=== PATIENT | female | born 1955 | race Caucasian/White ===

== ENCOUNTER 2021-04-28 06:22 | Day surgery (SDC) | payer MEDICARE ==
[~2021-04-28] VITALS: Ht 175.3 cm; Wt 65.3 kg
[~2021-04-28 06:22] MED LIST: AMBIEN5 MG PO; AMITRIPTYLINE H25 MG PO; ASPIRIN EC81 MG PO; CALTRATE 600 +1 EAC1 PO; COQ-1030 MG PO; DAILY VITAMIN1 EAC2 PO; EFFEXOR XR150 MG PO; EFFEXOR XR37.5 MG PO; EVISTA60 MG PO; FROVA2.5 MG PO; MAGNESIUM GLUC500 GM MC; NEXIUM20 MG PO; POTASSIUM GLUCO99 MG PO; TOPROL XL100 MG PO; VITAMIN C500 M1 PO
[2021-04-28] MEDS ORDERED: GABAPENTIN800 MG PO (06:42)
[2021-04-28] MEDS ORDERED: FAMOTIDINE20 MG PO (06:44)
[2021-04-28] MEDS ORDERED: METOPROLOL SUC200 MG PO (06:46)
--- NOTE | 2021-04-28 08:24 | NUR ---
04/28/21 0824 Vale Russell 0752 PT ARRIVED IN PACU SLEEPY. 0810 AT BEDSIDE TALKING WITH PT. 0815 SIPPING ON WATER. DC INSTRUCTIONS GIVEN. 0820 LEFT VIA W/C.
--- NOTE | 2021-04-29 15:49 | PATH ---
[facility] [address] [place], [place] [address] Signed SPECIMEN(S): A ANTRUM/PYLORUS BIOPSY SPECIMEN SOURCE: A. ANTRUM/PYLORUS BIOPSY CLINICAL HISTORY: EGD with poss. dilation. Preop: Esophageal dysphagia, acid reflux. Postop: Gastritis. MICROSCOPIC DESCRIPTION: Histologic sections of all submitted blocks are examined by light microscopy. These findings, together with the gross examination, support the pathologic diagnosis. FINAL PATHOLOGIC DIAGNOSIS: Stomach, antrum/pylorus, biopsy: - Antral mucosa with chronic, inactive gastritis. - Negative for Helicobacter organisms on HE stain. - Negative for dysplasia or malignancy. NAL:cml:C2NR GROSS DESCRIPTION: The specimen, labeled "DM, antrum/pylorus," is received in formalin and consists of one duran soft tissue fragment that measures 0.3 cm in greatest dimension. The specimen is entirely submitted in cassette (A1). AT (under the direct supervision of a pathologist) The Gross Description was prepared using a voice recognition system. The report was reviewed for accuracy; however, sound-alike word errors, addition and/or deletions may occur. If there is any question about this report, please contact Client Services. PERFORMING LABORATORY: The technical component was performed by [employer], [address] [place] [address] (Molded Frames Assembler: Laura Ruvalcaba MD; CLIA# [id number]). [facility], [address] [address] (CLIA# [id number]). Diagnostician: Brittny Ibrahim MD Pathologist Electronically Signed 04/29/2021 PATIENT NAME: SHANIQUA HOBSON PATHOLOGY DATE OF : 55 REPORT #: [id number] PHYSICIAN: [facility] PCP: NIC ROMERO PAC REPORT IS CONFIDENTIAL AND NOT TO BE RELEASED WITHOUT AUTHORIZATION [address] [place], [place] [address] Signed Copies: ~ PATIENT NAME: SHANIQUA HOBSON PATHOLOGY DATE OF : 55 REPORT #: [id number] PHYSICIAN: [facility] PCP: NIC ROMERO PAC REPORT IS CONFIDENTIAL AND NOT TO BE RELEASED WITHOUT AUTHORIZATION
--- NOTE | 2021-05-05 13:05 | OR ---
[facility] [address] [place], [place] [address] Signed DATE OF OPERATION: 04/28/2021 SURGEON: Nando Davis MD PREOPERATIVE DIAGNOSES: 1. Gastroesophageal reflux disease. 2. Distal esophageal dysphagia. POSTOPERATIVE DIAGNOSIS: [id number] diffuse punctate hemorrhagic gastritis. PROCEDURE: Esophagogastroduodenoscopy with CLOtest and biopsies of the antrum. ESTIMATED BLOOD LOSS: None. INDICATIONS: Shaniqua is a 66-year-old female, who was asked to see me for upper endoscopy. We have come through the COVID pandemic this last year along with all of our various political elections. She told me it has been very stressful for her and her family. She has been having what she feels acid reflux, but more importantly distal esophageal dysphagia. Although, she then pointed to the sternal notch. She said it is mainly to solids, but otherwise she can get it down with a drink of water. She started herself on Pepcid 20 mg p.o. b.i.d. and it is better. She said the swallowing is much better, although she does not feel it is quite back to baseline. We had seen her in the office and reviewed the above findings with her. We sent her for a barium swallow and she has a Schatzki's ring in the distal esophagus; however, today she felt she was better and did not feel strongly about having that dilated. In the office, I gave her a pamphlet on upper endoscopy. She understands the nature of that test, having gone through it before as well as a colonoscopy. She understands there is risk including, but not limited to gas bloating, crampy abdominal pain, bleeding, perforation requiring surgery, and missed diagnosis. She recalls the need for IV conscious sedation. She had expressed understanding and wished to proceed. DESCRIPTION OF PROCEDURE: Shaniqua was taken into our endoscopy suite and placed in a supine semi-recumbent position. She was given 3 mg of Versed and 100 mcg of fentanyl to cover the case. The posterior oropharynx was anesthetized with lidocaine spray. A bite block was utilized for the case. The adult gastroscope was introduced and advanced under direct visualization of Electronically Signed By: NANDO DAVIS MD 04/29/21 0721 Electronically Signed By: NANDO DAVIS MD 05/07/21 0811 PATIENT NAME: SHANIQUA HOBSON OPERATIVE REPORT DATE OF : 55 REPORT #: [id number] PHYSICIAN: NANDO DAVIS MD PCP: NIC ROMERO PAC REPORT IS CONFIDENTIAL AND NOT TO BE RELEASED WITHOUT AUTHORIZATION [facility] [address] [place], [place] [address] Signed camera without difficulty. Her esophagus appears completely unremarkable. Specifically, we did not visualize the Schatzki ring. The scope was then passed through the stomach out into the duodenum itself. The duodenum and pyloric channel were unremarkable. Once back in the stomach, we could see mild punctate hemorrhagic gastritis throughout. We took biopsies from the antrum for pathologic review. We took an additional biopsy from the antrum for CLOtest, no ulcerations. Upon retroflexion of scope, we cannot appreciate a hiatal hernia. The scope was withdrawn up through the area of the GE junction, which was compliant without stricture. There was no gastric or esophageal varices. The Z-line remains intact. There was no Haddad mucosa. There was no distal esophagitis. The middle and upper esophagus were unremarkable. After this, the gas was suctioned out and the gastroscope removed. Shaniqua tolerated the procedure quite well. RECOMMENDATIONS: I will see Shaniqua back in my office in 7 to 14 days to review her results. She could consider a proton pump inhibitor for a couple of months until feeling better, and then switch over to her H2 cheri. Nanod Davis MD ALB/MODL /[id number] cc: Nando Davis MD Copies: NANDO DAVIS MD ~ Electronically Signed By: NANDO DAVIS MD 04/29/21 0721 Electronically Signed By: NANDO DAVIS MD 05/07/21 0811 PATIENT NAME: SHANIQUA HOBSON OPERATIVE REPORT DATE OF : 55 REPORT #: [id number] PHYSICIAN: NANDO DAVIS MD PCP: NIC ROMERO PAC REPORT IS CONFIDENTIAL AND NOT TO BE RELEASED WITHOUT AUTHORIZATION
== END 2021-04-28 08:20 | disposition home or self-care (01) ==
LOC: OPS 06:22 → DS 06:22 → OPS 06:45 → DS 06:45 → OPS 08:15
PROVIDERS: ATTEND Colon & Rectal Surgery
PROC: 0DB78ZX Excision of Stomach, Pylorus, Via Natural or Artificial Opening Endoscopic, Diagnostic (ICD-10-PCS; principal; 2021-04-28 06:45)
DX: K29.51 Unspecified chronic gastritis with bleeding (principal); I10 Essential (primary) hypertension; K21.9 Gastro-esophageal reflux disease without esophagitis; I45.19 Other right bundle-branch block; E78.5 Hyperlipidemia, unspecified; M81.0 Age-related osteoporosis without current pathological fracture; Z20.822 Contact with and (suspected) exposure to COVID-19
CPT/HCPCS: 88305; 99153; G0500; J2250; J3010; J7121

== ENCOUNTER 2022-05-31 08:32 | Emergency (ER) | payer MEDICARE ==
[~2022-05-31] VITALS: Ht 175.3 cm; Wt 64.9 kg
[~2022-05-31 08:32] MED LIST changes: +FAMOTIDINE20 MG PO; +GABAPENTIN800 MG PO; +METOPROLOL SUC200 MG PO
== END 2022-05-31 10:50 | disposition home or self-care (01) ==
LOC: ED 08:32
DX: S83.92XA Sprain of unspecified site of left knee, initial encounter (principal); I10 Essential (primary) hypertension; Z87.891 Personal history of nicotine dependence; Z79.899 Other long term (current) drug therapy; X50.1XXA Overexertion from prolonged static or awkward postures, initial encounter
CPT/HCPCS: 73560

== ENCOUNTER 2025-02-19 10:55 | Day surgery (SDC) | payer MEDICARE ==
[~2025-02-19] VITALS: Ht 175.3 cm; Wt 64.5 kg
[~2025-02-19 10:55] MED LIST changes: +24 HOUR ALLERG9.9 ML NAS; +ALPHA LIPOIC A200 MG PO; +CALCIUM 1,0001 EAC1 PO; +CANDICIDAL CAP1 EACH PO; +DICLOFENAC SODI75 MG PO; +ESTRACE42.5 GM VAGINAL; +ESTRADIOL1 EAC8 TD; +FISH OIL 1,001000 MG PO; +FLUTICASONE PRO16 GM NAS; +IBLOOD GLUCOSE TEST STRIP 1 EA TEST VI PRN; +LACTATED RINGER'S 1,000 ML IV SCH; +LIDOCAINE HCL 1% 5 ML SDV INJ ONE; +LIDOCAINE HCL 4% 50 ML BTL TOP SCH; +MIDAZOLAM HCL 5 MG/5 ML VIAL IV PRN; +OMEPRAZOLE20 M2 PO; +[UNRECOGNIZED DRUG - OTHER] PR; +fentaNYL citrate 100 MCG/2 ML VIAL IV PRN
[2025-02-19] MEDS ORDERED: LIPOIC ACID25 GM PO (11:19)
[2025-02-19] MEDS ORDERED: TURMERIC500 M3 PO (11:19)
[2025-02-19] MEDS ORDERED: [UNRECOGNIZED DRUG - OTHER] TOP (11:21)
[2025-02-19 11:22] VITALS: BP 181/75
[2025-02-19] MEDS ORDERED: MIDAZOLAM HCL 5 MG/5 ML VIAL ONE (12:26)
[2025-02-19] MEDS ORDERED: fentaNYL citrate 100 MCG/2 ML VIAL ONE (12:26)
--- NOTE | 2025-02-19 13:30 | NUR ---
02/19/25 1330 Sheets,Radha 1321 PT ARRIVED TO PACU ON 2L VIA NC, PT WAKES EASILY AND DENIES CONCERNS. PT EASILY FALLS BACK TO SLEEP AND DECREASED RESP RATE NOTED. DEEP BREATHING ENCOURAGED OFF AND ON, PT WAKES EASILY TO VERBAL STIMULI.
[2025-02-19 14:25] VITALS: BP 135/71
--- NOTE | 2025-02-20 09:54 | OR ---
[facility] [address] [place], [place] [address] Signed DATE OF OPERATION: 02/19/2025 SURGEON: Alvaro Garrett MD PREOPERATIVE DIAGNOSES: 1. History of mid esophageal dysphagia and gastroesophageal reflux symptoms; recently free of symptoms. 2. Abnormal upper GI in September 2024 (food delay in mid esophagus). POSTOPERATIVE DIAGNOSIS: Normal-appearing esophagus, flap valve, stomach, and duodenum. PROCEDURE: Esophagogastroduodenoscopy with biopsy. ANESTHESIA: Intravenous sedation fentanyl 100 mcg, Versed 3 mg. INDICATION: This 69-year-old white woman is a patient of MAL Chaney. She has a history of dysphagia and reflux. She was on famotidine b.i.d., which was inadequate in controlling her symptoms. She was empirically treated with PPI medication, Prilosec 20 mg daily, which has been very helpful to her. An upper GI was performed in September 2024, which showed food delay in passage to the mid esophagus which cleared with dry swallows. Since initiating omeprazole 20 mg a day and continuing famotidine 20 mg b.i.d. at the request of her primary provider Nic Romero, she has essentially no symptoms of dysphagia or heartburn. She is admitted at this time to undergo upper endoscopy to better characterize her situation and particularly to assess for eosinophilic esophagitis given the upper GI findings. The risk of bleeding, infection, perforation, and so forth were reviewed with her. She understands and wished to proceed. FINDINGS: The esophagus, stomach and duodenum were essentially normal. The flap valve was surprisingly good. There was no evidence of H pylori based on CLOtest initially. There was no obstruction to the gastric outlet. Duodenum appeared normal. There was no hiatal hernia. DESCRIPTION OF PROCEDURE: The patient was brought to the endoscopy suite and placed in lateral decubitus position Electronically Signed By: ALVARO GARRETT MD 02/20/25 0954 PATIENT NAME: SHANIQUA HOBSON OPERATIVE REPORT DATE OF : 55 REPORT #: [id number] PHYSICIAN: ALVARO GARRETT MD PCP: NIC ROMERO PAC REPORT IS CONFIDENTIAL AND NOT TO BE RELEASED WITHOUT AUTHORIZATION [facility] [address] [place], [place] [address] Signed after undergoing topical lidocaine hypopharyngeal anesthesia. She was given intravenous sedation to the point of slurred speech and nystagmus with full cardiopulmonary monitoring. A bite block was placed. An Olympus video upper endoscope was passed in the hypopharynx. The vocal cords were visualized as normal. Scope was easily passed in the esophagus throughout its length, it was normal. Scope was passed to the stomach which was insufflated with air. Rugal folds were normal. Antrum was normal as was the pylorus. The scope was passed through it into the duodenum, which was normal. Biopsies were then taken of the duodenum showing no sign of abnormality otherwise. Further withdrawal showed normal antrum and biopsies were obtained there for both JORDAN and pathologic testing. Retroflexed view was undertaken showing a surprisingly good flap valve, certainly no hiatal hernia per se. Scope was straightened, withdrawn. Biopsies taken of the distal esophagus and also in the midesophagus to assess for eosinophilic esophagitis. There is certainly no evidence of inflammatory change, stricture, neoplasm, felinization, varices or other abnormality. Further withdrawal of scope showed no other findings of concern. Scope was removed. CONCLUDING DIAGNOSIS: Clinical gastroesophageal reflux with some mid esophageal dysphagia. At this point, I think she can discontinue the H2 cheri b.i.d. and stay with the Prilosec (omeprazole) 20 mg daily. We will see her back in the office in 3 to 6 months to review her pathology reports and her clinical course under the new regimen and go from there. MD TAMIE Wesley/MIGUELINA /[id number] cc: Nic Romero PA-C Copies: ~ Electronically Signed By: ALVARO GARRETT MD 02/20/25 0954 PATIENT NAME: SHANIQUA HOBSON OPERATIVE REPORT DATE OF : 55 REPORT #: [id number] PHYSICIAN: ALVARO GARRETT MD PCP: NIC ROMERO PAC REPORT IS CONFIDENTIAL AND NOT TO BE RELEASED WITHOUT AUTHORIZATION
--- NOTE | 2025-02-21 10:29 | PATH ---
[facility] [address] [place], [place] [address] Signed SPECIMEN(S): A DUODENAL BIOPSY SPECIMEN(S): B ANTRUM BIOPSY SPECIMEN(S): C LOWER ESOPHAGEAL BIOPSY SPECIMEN(S): D MIDDLE ESOPHAGEAL BIOPSY SPECIMEN SOURCE: A. DUODENAL BIOPSY B. ANTRUM BIOPSY C. LOWER ESOPHAGEAL BIOPSY D. MIDDLE ESOPHAGEAL BIOPSY CLINICAL HISTORY: GERD, history of H. pylori. Post-normal esophagus FINAL PATHOLOGIC DIAGNOSIS: A. Duodenum, biopsy: - Duodenal mucosa with no significant pathologic changes B. Stomach, antrum, biopsy: - Gastric antral mucosa with no significant pathologic changes - Negative for Helicobacter pylori with HE stains C. Esophagus, lower, biopsy: - Esophageal squamous mucosa with no significant pathologic changes D. Esophagus, middle, biopsy: - Esophageal squamous mucosa with no significant pathologic changes BRP MICROSCOPIC EXAMINATION: Histologic sections of all submitted blocks are examined by light microscopy. These findings, together with the gross examination, support the pathologic diagnosis. GROSS DESCRIPTION: A. The specimen, labeled and designated "Naomi Marks, duodenal biopsy," is received in formalin and consists of three duran soft tissue fragments, ranging from 0.1-0.3 cm. Entirely submitted in (A1). B. The specimen, labeled and designated "Naomi Marks, antrum biopsy," is received in formalin and consists of two duran soft tissue fragments, ranging from 0.2-0.4 cm. Entirely submitted in (B1). C. The specimen, labeled and designated "Kendrick, D, lower esophageal biopsy," is received in formalin and consists of two duran soft tissue fragments, ranging from 0.2-0.6 cm. Entirely submitted in PATIENT NAME: SHANIQUA MARKS PATHOLOGY DATE OF : 55 REPORT #: [id number] PHYSICIAN: MAYELA AWAN PCP: NIC ROMERO PAC REPORT IS CONFIDENTIAL AND NOT TO BE RELEASED WITHOUT AUTHORIZATION [facility] [address] [place], [place] [address] Signed (C1). D. The specimen, labeled and designated "Naomi Marks, middle esophageal biopsy," is received in formalin and consists of one duran soft tissue fragment, 0.3 cm. Entirely submitted in (D1). AB (under the direct supervision of a pathologist) The Gross Description was prepared using a voice recognition system. The report was reviewed for accuracy; however, sound-alike word errors, addition and/or deletions may occur. If there is any question about this report, please contact Client Services. ADDITIONAL NOTES: Immunohistochemical and/or in situ hybridization studies if performed in this case included appropriate positive controls that reacted as expected. This test was developed and its performance characteristics determined by [facility]. It has not been cleared or approved by the U.S. Food and Drug Administration. The FDA has determined that such clearance or approval is not necessary. This test is used for clinical purposes. It should not be regarded as investigational or for research. [facility] is certified under the Clinical Laboratory Improvement Amendments of 1988 (CLIA) as qualified to perform high complexity clinical laboratory testing. Technical component was performed by [facility], [address] [place] [id number] (CLIA# [id number]). Professional interpretation was performed by [facility], [address] [place] [address] (CLIA#: [id number]). Diagnostician: Gabe Mcgovern MD Pathologist Electronically Signed 02/21/2025 Copies: ~ PATIENT NAME: SHANIQUA MARKS PATHOLOGY DATE OF : 55 REPORT #: [id number] PHYSICIAN: MAYELA PATHOLOGY PCP: NIC ROMERO PAC REPORT IS CONFIDENTIAL AND NOT TO BE RELEASED WITHOUT AUTHORIZATION
== END 2025-02-19 14:17 | disposition home or self-care (01) ==
LOC: DS 10:55
PROVIDERS: ATTEND Surgery
PROC: 0DB68ZX Excision of Stomach, Via Natural or Artificial Opening Endoscopic, Diagnostic (ICD-10-PCS; 2025-02-19)
PROC: 0DB28ZX Excision of Middle Esophagus, Via Natural or Artificial Opening Endoscopic, Diagnostic (ICD-10-PCS; 2025-02-19)
PROC: 0DB38ZX Excision of Lower Esophagus, Via Natural or Artificial Opening Endoscopic, Diagnostic (ICD-10-PCS; 2025-02-19)
PROC: 0DB98ZX Excision of Duodenum, Via Natural or Artificial Opening Endoscopic, Diagnostic (ICD-10-PCS; principal; 2025-02-19 12:15)
DX: K21.9 Gastro-esophageal reflux disease without esophagitis (principal); Z86.19 Personal history of other infectious and parasitic diseases; Z79.899 Other long term (current) drug therapy
CPT/HCPCS: 88305; 99153; G0500; J2250; J3010; J7121